=== PATIENT | female | born 1950 | race African-American/Black ===

== ENCOUNTER → 2017-12-08 | Outpatient (CLI) | payer MEDICARE ==
[2017-12-08 07:57] LABS: ABSOLUTE BASOPHILS # (AUTO) 0.1 10^3/uL (0.0-0.2); ABSOLUTE LYMPHOCYTES (AUTO) 2.4 10^3/uL (0.5-4.7); ABSOLUTE MONOCYTES (AUTO) 0.8 10^3/uL (0.1-1.4); ABSOLUTE NEUT (AUTO) 2.8 10^3/uL (1.7-8.2); BASOPHILS % (AUTO) 1.4 % (0-2); EOSINOPHILS % (AUTO) 0.1 % (0-6); HEMATOCRIT 36.5 % (36.0-47.0); HEMOGLOBIN 12.5 g/dL (12.0-15.5); LYMPHOCYTES % (AUTO) 38.8 % (13-45); MEAN CORPUSCULAR HEMOGLOBIN 31.9 pg (27.0-33.4); MEAN CORPUSCULAR HGB CONC 34.1 g/dL (32.0-36.0); MEAN CORPUSCULAR VOLUME 93 fl (80-97); MONOCYTES % (AUTO) 13.5 % (3-13); PLATELET COUNT 205 10^3/uL (150-450); RED BLOOD COUNT 3.91 10^6/uL (3.72-5.28); RED CELL DISTRIBUTION WIDTH 12.7 % (11.5-14.0); SEGMENTED NEUTROPHILS % (AUTO) 46.2 % (42-78); TOTAL CELLS COUNTED % (AUTO) 100 %; WHITE BLOOD COUNT 6.1 10^3/uL (4.0-10.5)
[2017-12-08 08:14] LABS: ALANINE AMINOTRANSFERASE 56 U/L (9-52); ALBUMIN 3.9 g/dL (3.5-5.0); ALKALINE PHOSPHATASE 94 U/L (38-126); ANION GAP 14 (5-19); ASPARTATE AMINO TRANSFERASE 66 U/L (14-36); BILIRUBIN,DIRECT 0.3 mg/dL (0.0-0.4); BILIRUBIN,TOTAL 0.6 mg/dL (0.2-1.3); BLOOD UREA NITROGEN 12 mg/dL (7-20); CALCIUM 9.2 mg/dL (8.4-10.2); CARBON DIOXIDE 26 mmol/L (22-30); CHLORIDE 104 mmol/L (98-107); CHOLESTEROL 158.38 mg/dL (0-200); GLUCOSE 190 mg/dL (75-110); POTASSIUM 3.7 mmol/L (3.6-5.0); SODIUM 143.6 mmol/L (137-145); TOTAL PROTEIN 7.4 g/dL (6.3-8.2); TRIGLYCERIDES 116 mg/dL (<150)
[2017-12-08 08:35] LABS: DIRECT LDL 83 mg/dL (<100)
[2017-12-09 11:39] LABS: CREATININE URINE 182.1 mg/dL (Not Estab.); MICROALBUMIN URINE 10.7 ug/mL (Not Estab.)
== END ==
LOC: LAB 07:11
PROVIDERS: ATTEND Family Medicine
DX: E11.51 Type 2 diabetes mellitus with diabetic peripheral angiopathy without gangrene (principal); Z13.220 Encounter for screening for lipoid disorders
CPT/HCPCS: 36415; 80053; 80061; 82043; 82570; 83036; 85025

== ENCOUNTER → 2018-05-28 | Outpatient (CLI) | payer MEDICARE ==
[2018-05-28 10:44] LABS: ABSOLUTE LYMPHOCYTES (AUTO) 2.2 10^3/uL (0.5-4.7); ABSOLUTE NEUT (AUTO) 3.2 10^3/uL (1.7-8.2); BASOPHILS % (AUTO) 0.6 % (0-2); EOSINOPHILS % (AUTO) 0.1 % (0-6); HEMATOCRIT 37.2 % (36.0-47.0); HEMOGLOBIN 12.7 g/dL (12.0-15.5); LYMPHOCYTES % (AUTO) 34.1 % (13-45); MEAN CORPUSCULAR HEMOGLOBIN 31.8 pg (27.0-33.4); MEAN CORPUSCULAR HGB CONC 34.1 g/dL (32.0-36.0); MEAN CORPUSCULAR VOLUME 93 fl (80-97); MONOCYTES % (AUTO) 14.9 % (3-13); PLATELET COUNT 157 10^3/uL (150-450); RED CELL DISTRIBUTION WIDTH 12.5 % (11.5-14.0); SEGMENTED NEUTROPHILS % (AUTO) 50.3 % (42-78); TOTAL CELLS COUNTED % (AUTO) 100 %; WHITE BLOOD COUNT 6.5 10^3/uL (4.0-10.5)
[2018-05-28 11:01] LABS: ALANINE AMINOTRANSFERASE 86 U/L (9-52); ALBUMIN 4.3 g/dL (3.5-5.0); ALKALINE PHOSPHATASE 104 U/L (38-126); ANION GAP 12 (5-19); ASPARTATE AMINO TRANSFERASE 93 U/L (14-36); BILIRUBIN,DIRECT 0.2 mg/dL (0.0-0.4); BILIRUBIN,TOTAL 0.6 mg/dL (0.2-1.3); BLOOD UREA NITROGEN 14 mg/dL (7-20); CALCIUM 9.6 mg/dL (8.4-10.2); CARBON DIOXIDE 27 mmol/L (22-30); CHLORIDE 99 mmol/L (98-107); CHOLESTEROL 202.49 mg/dL (0-200); GLUCOSE 287 mg/dL (75-110); POTASSIUM 3.9 mmol/L (3.6-5.0); SODIUM 137.6 mmol/L (137-145); TOTAL PROTEIN 7.7 g/dL (6.3-8.2); TRIGLYCERIDES 132 mg/dL (<150)
[2018-05-28 11:12] LABS: DIRECT LDL 113 mg/dL (<100)
[2018-05-30 14:40] LABS: CREATININE URINE 158.8 mg/dL (Not Estab.); MICROALBUMIN URINE 8.1 ug/mL (Not Estab.)
== END ==
LOC: OD 09:04
PROVIDERS: ATTEND Family Medicine
DX: E11.51 Type 2 diabetes mellitus with diabetic peripheral angiopathy without gangrene (principal); Z79.82 Long term (current) use of aspirin
CPT/HCPCS: 36415; 80053; 80061; 82043; 82570; 83036; 85025

== ENCOUNTER 2018-06-24 01:34 | Emergency (ER) | payer MEDICARE ==
[2018-06-24 03:09] VITALS: BP 175/86
== END 2018-06-24 06:36 | disposition left against medical advice (07) ==
LOC: ER 01:34
DX: Z53.21 Procedure and treatment not carried out due to patient leaving prior to being seen by health care provider (principal)

== ENCOUNTER 2018-06-24 10:37 | Emergency (ER) | payer MEDICARE ==
[2018-06-24] MEDS ORDERED: ASPIRIN 81 MG TABLET, CHEWABLE PO ONE (11:05)
--- NOTE | 2018-06-24 11:06 | ER Document Report ---
ED Medical Screen (RME) - General Chief Complaint: Leg Swelling Stated Complaint: LEG SWOLLEN Time Seen by Provider: 06/24/18 11:00 Primary Care Provider: AJ HENSON MD [Primary Care Provider] - Follow up as needed Notes: 68-year old female with a history of diabetes presents emergency department with complaints of right lower extremity pain. Patient came to the emergency department yesterday for similar complaints and left AGAINST MEDICAL ADVICE. EMS brought the patient to the emergency department. Her blood sugar was noted to be 429. Patient states that she is having increased thirst, increased urination, RLE pain, and shortness of breath. Patient denies a history of any lung disease. Denies any fever, chills, chest pain, rhinorrhea, cough. I have greeted and performed a rapid initial assessment of this patient. A comprehensive ED assessment and evaluation of the patient, analysis of test results and completion of the medical decision making process will be conducted by additional ED providers. PHYSICAL EXAMINATION: GENERAL: Well-appearing, well-nourished and in no acute distress. HEAD: Atraumatic, normocephalic. EYES: Pupils equal round extraocular movements intact, conjunctiva are normal. ENT: Nares patent NECK: Normal range of motion LUNGS: No respiratory distress Musculoskeletal: Normal range of motion NEUROLOGICAL: Normal speech. PSYCH: Normal mood, normal affect. SKIN: Warm, Dry, normal turgor, no rashes or lesions noted. TRAVEL OUTSIDE OF THE [place] IN LAST 30 DAYS: No - Related Data Allergies/Adverse Reactions: No Known Allergies Allergy (Verified 06/24/18 10:38) Physical Exam - Vital signs Vitals: Temp Pulse Resp BP Pulse Ox 98.5 F 127 H 16 94/71 L 98 06/24/18 10:45 06/24/18 10:45 06/24/18 10:45 06/24/18 10:45 06/24/18 10:45 Course - Vital Signs Vital signs: Temp Pulse Resp BP Pulse Ox 98.5 F 127 H 16 94/71 L 98 06/24/18 10:45 06/24/18 10:45 06/24/18 10:45 06/24/18 10:45 06/24/18 10:45 Doctor's Discharge - Discharge Referrals: AJ HENSON MD [Primary Care Provider] - Follow up as needed
[2018-06-24] MEDS ORDERED: NORMAL SALINE 1000 ML 1,000 ML IV ONE ×2 (11:10→14:00)
[2018-06-24 12:04] LABS: HEMATOCRIT 42.8 % (36.0-47.0); HEMOGLOBIN 13.5 g/dL (12.0-15.5); MEAN CORPUSCULAR HEMOGLOBIN 31.8 pg (27.0-33.4); MEAN CORPUSCULAR HGB CONC 31.6 g/dL (32.0-36.0); PLATELET COUNT 153 10^3/uL (150-450); RED BLOOD COUNT 4.25 10^6/uL (3.72-5.28); RED CELL DISTRIBUTION WIDTH 13.7 % (11.5-14.0); WHITE BLOOD COUNT 25.9 10^3/uL (4.0-10.5)
[2018-06-24] MEDS ORDERED: ETOMIDATE INJ/PF 20 MG/10 ML SDV IV ONE (12:17)
[2018-06-24] MEDS ORDERED: NOREPINEPHRINE BITARTRATE INJ/PF 4 MG/4 ML SDV IV ONE ×2 (12:18→16:29)
[2018-06-24 12:21] LABS: ALANINE AMINOTRANSFERASE 59 U/L (9-52); ALBUMIN 4.6 g/dL (3.5-5.0); ALKALINE PHOSPHATASE 148 U/L (38-126); BILIRUBIN,DIRECT 0.9 mg/dL (0.0-0.4); BILIRUBIN,TOTAL 1.3 mg/dL (0.2-1.3); BLOOD UREA NITROGEN 16 mg/dL (7-20); CALCIUM 8.7 mg/dL (8.4-10.2); POTASSIUM 4.1 mmol/L (3.6-5.0)
[2018-06-24 12:26] LABS: CARBON DIOXIDE 12 mmol/L (22-30); CHLORIDE 102 mmol/L (98-107); SODIUM 142.6 mmol/L (137-145)
[2018-06-24 12:28] LABS: ASPARTATE AMINO TRANSFERASE 336 U/L (14-36)
[2018-06-24 12:32] LABS: ANION GAP 29 (5-19)
[2018-06-24 12:35] LABS: GLUCOSE 590 mg/dL (75-110)
[2018-06-24 12:43] LABS: MEAN CORPUSCULAR VOLUME 101 fl (80-97)
[2018-06-24 12:47] LABS: ABSOLUTE LYMPHOCYTES# (MANUAL) 1.6 10^3/uL (0.5-4.7); ABSOLUTE MONOCYTES # (MANUAL) 0.8 10^3/uL (0.1-1.4); ABSOLUTE NEUTROPHILS# (MANUAL) 23.6 10^3/uL (1.7-8.2); BAND NEUTROPHILS % (MANUAL) 27 % (3-5); BASOPHILS % (MANUAL) 0 % (0-2); BURR CELLS SLIGHT; EOSINOPHILS % (MANUAL) 0 % (0-6); LYMPHOCYTES % (MANUAL) 6 % (13-45); METAMYELOCYTES % (MANUAL) 7 % (0); MONOCYTES % (MANUAL) 3 % (3-13); OVALOCYTES SLIGHT; PLATELET COMMENT ADEQUATE; POIKILOCYTOSIS SLIGHT; SEGMENTED NEUTROPHILS % (MAN) 57 % (42-78); TOTAL CELLS COUNTED 100
[2018-06-24] MEDS ORDERED: PROPOFOL 0 MG/0 ML INFUS..BTL IV ONE (12:59)
[2018-06-24] MEDS ORDERED: CEFTRIAXONE 2 GM/D5W RTU 2 GM/50 ML RTUPB IV ONE (13:07)
[2018-06-24] MEDS ORDERED: MIDAZOLAM 2 MG/2 ML INJ ONE (13:09)
--- NOTE | 2018-06-24 13:17 | RADIOLOGY REPORT (SQ) ---
EXAM DESCRIPTION: CHEST SINGLE VIEW COMPLETED DATE/TIME: 06/24/2018 1:01 pm REASON FOR STUDY: shortness of breath COMPARISON: None. EXAM PARAMETERS: NUMBER OF VIEWS: One view. TECHNIQUE: Single frontal radiographic view of the chest acquired. RADIATION DOSE: NA LIMITATIONS: None. FINDINGS: LUNGS AND PLEURA: There is possible left perihilar and retrocardiac heterogeneous pulmonar y opacity. Lung ayala are generally poorly evaluated on this low volume examination with overlying support apparatus. MEDIASTINUM AND HILAR STRUCTURES: No masses. Contour normal. HEART AND VASCULAR STRUCTURES: Heart normal in size. Normal vasculature. BONES: No acute findings. HARDWARE: None in the chest. OTHER: Endotracheal tube positioned below the thoracic inlet. Esophagogastric tube with tip and side -port below the diaphragm. IMPRESSION: 1. Endotracheal tube positioned below the thoracic inlet. Esophagogastric tube with tip and side-port below the diaphragm. 2. There is possible left perihilar and retrocardiac heterogeneous pulmonary opacity. Lung ayala ar e generally poorly evaluated on this low volume examination with overlying support apparatus. TECHNICAL DOCUMENTATION: JOB ID: [id number] [employer]- All Rights Reserved Reading location - IP/workstation name: [email or web address]
--- NOTE | 2018-06-24 14:03 | EKG REPORT ---
SEVERITY:- OTHERWISE NORMAL ECG - SINUS TACHYCARDIA BORDERLINE LEFT AXIS DEVIATION : Confirmed by: Geo Holloway 24-Jun-2018 14:02:15
[2018-06-24] MEDS ORDERED: DOPAMINE HCL/DEXTROSE 5%-WATER 800 MG/250 ML RTUINJ IV ONE (14:04)
--- NOTE | 2018-06-24 15:10 | ER Document Report ---
ED General - General Chief Complaint: Leg Swelling Stated Complaint: LEG SWOLLEN Time Seen by Provider: 06/24/18 11:00 Primary Care Provider: AJ HENSON MD [Primary Care Provider] - Follow up as needed Notes: Patient brought in by EMS for right leg pain. Reviewing patient's history with nursing staff, patient was reportedly here and left without being seen this morning. Reviewing her chart from earlier shows that she came in about 1:30 AM with right leg pain. Said she had been walking a lot the day before but no other unusual activity. Also complained of nausea and vomiting. She was not seen because the emergency department was so busy. She left without being seen at approximately 6:30 AM this morning. Family relates that the patient has developed swelling of the right leg that was not present last night when the leg pain started. The patient returns with complaint of continued right leg pain and now swelling of that leg. She went through triage and she had a pulse of 127 and a blood pressure of 94/71. Respirations were 16 and O2 sat 98%. Afebrile. Just as the patient was being helped to her stretcher in the examining room, she suddenly became unresponsive. I was called to the bedside. Patient was laying on the stretcher and unresponsive to any vocal or tactile stimulation. She had very weak radial pulses in her wrists bilaterally. CPR was initiated. At one time, patient appeared to be in asystole and I almost ceased any further resuscitation, but patient was noted to return to a wide complex heart rate around 100 and developed a pulse so CPR was continued. Patient was intubated. Blood pressure was very low and patient was started on Levophed and titrated up in dose of 20 mcg/min. When the blood pressure did not seem to respond well, a second pressor medication, dopamine, was started. Patient also received 2 L of saline. Patient's only blood thinner is aspirin daily. TRAVEL OUTSIDE OF THE [place] IN LAST 30 DAYS: No - Related Data Allergies/Adverse Reactions: No Known Allergies Allergy (Verified 06/24/18 10:38) Past Medical History - Social History Smoking Status: Former Smoker Chew tobacco use (# tins/day): No Frequency of alcohol use: None Drug Abuse: None Family History: Reviewed & Not Pertinent Patient has suicidal ideation: No Patient has homicidal ideation: No - Past Medical History Cardiac Medical History: Reports: Hx Hypercholesterolemia, Hx Hypertension Endocrine Medical History: Reports: Hx Diabetes Mellitus Type 2 Past Surgical History: Reports: Hx Genitourinary Surgery, Hx Hysterectomy Review of Systems - Review of Systems Notes: Unresponsive. -: Yes ROS unobtainable due to patient's medical condition Physical Exam - Vital signs Vitals: Temp Pulse Resp BP Pulse Ox 98.5 F 127 H 16 94/71 L 98 06/24/18 10:45 06/24/18 10:45 06/24/18 10:45 06/24/18 10:45 06/24/18 10:45 Interpretation: Hypotensive Notes: PHYSICAL EXAMINATION: GENERAL: Unresponsive.. HEAD: Atraumatic, normocephalic. EYES: Unable to examine NECK: Normal range of motion, supple. LUNGS: Breath sounds clear and equal bilaterally. HEART: Regular rate and rhythm without murmurs. Very faint heart sounds, likely due to the low blood pressure ABDOMEN: Soft, nontender. No guarding or rebound. No masses. BACK: No tenderness throughout entire back. EXTREMITIES: Right upper leg massively swollen and somewhat tight to the touch. Has the feel of gas, sounds like gas when percussed, even note some slight feeling of subcutaneous air crinkling. Some dark discoloration on the medial aspect of the right knee and distal thigh. Initially, I could easily palpate pulses in the left, normal lower extremity at the dorsalis pedis, and I thought I could feel a very faint pulse of the dorsal right foot NEUROLOGICAL: Unresponsive PSYCH: SKIN: Warm, dry, see above description of extremities s. Course - Re-evaluation Re-evalutation: 06/24/18 16:04 Patient continued to have difficulty maintaining an acceptable blood pressure blood pressure would drop down into the 60s or 70s systolic, even on the Levophed drip at 20 mics per hour. We added dopamine drip. Patient's CBC showed a white count of about 25,000 with 25 bands. I ordered 2 g of Rocephin IV. I reexamined patient and found that her right leg felt cooler now than the left and I definitely cannot feel pulses in the left foot. There is an extreme amount of swelling of that right thigh, tense to the touch, and now, the patient is starting to develop dark fluid-filled blisters of the right thigh they are apparently enlarging, as well. We are set up to do a CTA of the chest to rule out PE. We are going to do run off of the contrast and try to get CT of the blood vessels of the proximal right lower extremity. I have held up on giving anticoagulants because of this patient's swelling of the right leg and my juve rns that she might have a bleeding problem that is compromising the blood flow into the right lower extremity. Central line has been placed by Dr. Jj, surgeon crutching contractor. Patient's pH has come back in the 6.6 area. She is been given a couple of amps of bicarb. 06/24/18 18:[address] scan shows extensive subcutaneous air/gas throughout most of the right leg and up into the buttock and lower abdominal bilaterally, though more on the right than on the left. Radiologist said that the gas is actually seen to be within the arteries in the right groin and thigh. Over time, patient's right leg had become cold and no pulses could be palpated in the foot. I suspect that the compression of gas in the patient's right thigh was preventing blood supply to the arteries into the foot. I did examine the soles of both of the patient's feet and did not find any evidence of a cut or sore or any infection. Patient's blood pressure continued to drop, down to systolic of 70 in spite of being on both Levophed and dopamine drips. Also, patient began to drop her oxygen saturation to about 80%. Tube placement was rechecked. CO2 detector checked and tube is in proper location. As patient's blood pressure dropped to 58 systolic, I spoke with the family explaining everything were finding on the patient's CT scan. Asked them to consider making the patient a DNR. Had a lengthy conversation with 1 of patient's sisters, even showing her the CT scan results. We went back into the patient's room and while standing there awaiting the Doppler tech to finish the venous Doppler of this patient's leg, I noted that the monitor went to 0 heart rate. We checked the wiring and attachments had everything is intact but the patient's heart had stopped. I told the patient sister that I did not feel we should do anything else because there was nothing else that was going to make a difference in this patient's outcome. Patient showed no more cardiac activity and the respirator was removed. Drips were stopped. I went to the family room and told the in the room many members of the family about the patient's passing. Patient was pronounced at 18:13. - Vital Signs Vital signs: Temp Pulse Resp BP Pulse Ox 97.4 F 127 H 20 39/23 L 91 L 06/24/18 13:17 06/24/18 10:45 06/24/18 18:04 06/24/18 18:04 06/24/18 17:56 - Laboratory Result Diagrams: 06/24/18 11:40 06/24/18 11:40 Laboratory results interpreted by me: 06/24/18 06/24/18 06/24/18 11:40 11:40 11:40 WBC 25.9 H MCV 101 H D MCHC 31.6 L Band Neutrophils % 27 H Lymphocytes % (Manual) 6 L Metamyelocytes % 7 H Abs Neuts (Manual) 23.6 H Carbonic Acid ABG pH ABG pCO2 ABG pO2 ABG HCO3 ABG Total CO2 Carbon Dioxide 12 L Anion Gap 29 H Creatinine 1.61 H Est GFR ( Amer) 39 L Est GFR (Non-Af Amer) 32 L Glucose 590 H* Lactic Acid 17.3 H Direct Bilirubin 0.9 H AST 336 H ALT 59 H Alkaline Phosphatase 148 H Urine Glucose (UA) Urine Ketones Urine Blood 06/24/18 06/24/18 13:51 13:51 WBC MCV MCHC Band Neutrophils % Lymphocytes % (Manual) Metamyelocytes % Abs Neuts (Manual) Carbonic Acid 1.66 H ABG pH 6.62 L* ABG pCO2 55.2 H ABG pO2 209.6 H ABG HCO3 5.6 L ABG Total CO2 7.3 L Carbon Dioxide Anion Gap Creatinine Est GFR ( Amer) Est GFR (Non-Af Amer) Glucose Lactic Acid Direct Bilirubin AST ALT Alkaline Phosphatase Urine Glucose (UA) >=500 H Urine Ketones 20 H Urine Blood LARGE H Procedures - Intubation Orotracheal Airway evaluation: Large tongue, Obese Medications: Etomidate, Other - Rocuronium Intubation method: Orotracheal Blade type: Other Equipment used: Glidescope ETT size: 7.0 Breath Sounds after Intubation: Equal End tidal CO2 confirmed: Yes Critical Care Note - Critical Care Note Total time excluding time spent on procedures (mins): 100 Discharge - Discharge Clinical Impression: Gas producing infection, Sepsis Disposition: Referrals: AJ HENSON MD [Primary Care Provider] - Follow up as needed
[2018-06-24 15:12] LABS: ARTERIAL BLOOD BASE EXCESS -31.9 mmol/L; ARTERIAL BLOOD H2CO3 1.66 mmol/L (1.05-1.35); ARTERIAL BLOOD HCO3 5.6 mmol/L (20-24); ARTERIAL BLOOD O2 SATURATION 97.4 % (94-98); ARTERIAL BLOOD PCO2 55.2 mmHg (35-45); ARTERIAL BLOOD PO2 209.6 mmHg (80-100); ARTERIAL BLOOD TOTAL CO2 7.3 mmol/L (21-25)
[2018-06-24 15:13] LABS: ARTERIAL BLOOD FIO2 100%
[2018-06-24 15:15] LABS: ARTERIAL BLOOD PH 6.62 (7.35-7.45)
[2018-06-24] MEDS ORDERED: SODIUM BICARBONATE 8.4% INJ 50 MEQ/50 ML DISP.SYRIN IV ONE ×2 (15:20)
[2018-06-24 15:23] LABS: APPEARANCE,URINE SLIGHTLY-CLOUDY; BILIRUBIN,URINE NEGATIVE (NEGATIVE); COLOR,URINE YELLOW; GLUCOSE, URINE >=500 mg/dL (NEGATIVE); KETONES,URINE 20 mg/dL (NEGATIVE); LEUKOCYTE ESTERASE,URINE NEGATIVE (NEGATIVE); NITRITE,URINE NEGATIVE (NEGATIVE); PROTEIN,URINE NEGATIVE (NEGATIVE); URINE SPECIFIC GRAVITY 1.022; UROBILINOGEN,URINE NEGATIVE mg/dL (<2.0)
[2018-06-24] MEDS ORDERED: ROCURONIUM BROMIDE INJ 50 MG/5 ML VIAL IV ONE (16:08)
--- NOTE | 2018-06-24 16:16 | RADIOLOGY REPORT (SQ) ---
EXAM DESCRIPTION: CHEST SINGLE VIEW COMPLETED DATE/TIME: 06/24/2018 4:02 pm REASON FOR STUDY: RT CL COMPARISON: Earlier the same day. NUMBER OF VIEWS: One view. TECHNIQUE: Single frontal radiographic image of the chest acquired. LIMITATIONS: None. FINDINGS: LUNGS AND PLEURA: Increasing airspace disease right lung and left base. No pneumothorax. MEDIASTINUM AND HEART: Stable heart size and mediastinal structures. SUPPORT DEVICES: Interval placement of right central line tip overlying SVC. Nasogastric and endotra cheal tubes position not significantly changed. BONY STRUCTURES: No acute findings. HARDWARE: None. OTHER: No other significant finding. IMPRESSION: Good position of right IJ central line. No pneumothorax. Reading location - IP/workstation name: [email or web address]
[2018-06-24] MEDS ORDERED: INSULIN REG, HUMAN 100 UNIT/ML 3 ML VIAL (PYX) IV ONE (16:36)
[2018-06-24] MEDS ORDERED: EPINEPHRINE INJ 1 MG/10 ML DISP.SYRIN ONE (16:47)
--- NOTE | 2018-06-24 17:53 | RADIOLOGY REPORT (SQ) ---
EXAM DESCRIPTION: CTA CHEST COMPLETED DATE/TIME: 06/24/2018 5:18 pm REASON FOR STUDY: Cardiopulmonary arrest, swollen right leg COMPARISON: None. TECHNIQUE: CT scan of the chest performed using helical scanning technique with dynamic intravenous contrast injection. Images reviewed with lung, soft tissue and bone windows. Reconstructed coronal and sagittal MPR images reviewed. Additional 3 dimensional post-processing performed to develop Maximal Intensity Projection images (NV P). All images stored on PACS. All CT scanners at this facility use dose modulation, iterative reconstruction, and/or weight based d osing when appropriate to reduce radiation dose to as low as reasonably achievable (ALARA). [facility]: Dose Right [facility]: CareDose [facility]: Dose Right [facility]: Teradose 4D [facility]: Smart [employer] CONTRAST TYPE AND DOSE: Contrast bolus adequate for pulmonary arteries and aorta. RENAL FUNCTION: BUN 16; creatinine 1.61 RADIATION DOSE: CT Rad equipment meets quality standard of care and radiation dose reduction techniq ues were employed. CTDIvol: 16.2 - 34.0 mGy. DLP: 1933 mGy-cm. . LIMITATIONS: None. FINDINGS: LUNGS AND PLEURA: Bibasilar dependent atelectasis versus consolidation. A tiny amount of extrapleural air is seen on the left. No pleural effusion. AORTA AND GREAT VESSELS: No aneurysm. No dissection. HEART: Gas is seen within the right ventricle. The heart is enlarged. Moderate pericardial fluid i s present. PULMONARY ARTERIES: No emboli visualized in the main pulmonary arteries or the segmental branches. HILAR AND MEDIASTINAL STRUCTURES: Pneumomediastinum. No identified masses or abnormal nodes. HARDWARE: Endotracheal tube demonstrates appropriate positioning. An enteric tube terminates within the stomach. UPPER ABDOMEN: See separate report of the CT of the abdomen. THYROID AND OTHER SOFT TISSUES: No masses. No adenopathy. BONES: Nondisplaced fractures of the left 6th and 7th ribs anteriorly. 3D MIPS: Confirm above findings. OTHER: No other significant finding. IMPRESSION: No pulmonary emboli or aortic dissection. Pneumomediastinum and gas seen within the rig ht ventricle in this patient with reported resuscitative efforts. Nondisplaced rib fractures on the left. Appropriate positioning of an enteric and endotracheal tube. COMMENT: Quality ID # 436: Final reports with documentation of one or more dose reduction techniques (e.g., Automated exposure control, adjustment of the mA and/or kV according to patient size, use of iterative reconstruction technique) TECHNICAL DOCUMENTATION: JOB ID: [id number] [employer]- All Rights Reserved Reading location - IP/workstation name: [email or web address]
--- NOTE | 2018-06-24 18:18 | RADIOLOGY REPORT (SQ) ---
EXAM DESCRIPTION: CTA ABD AORTA AND EXTREMITY COMPLETED DATE/TIME: 06/24/2018 5:18 pm REASON FOR STUDY: Swollen, cool right leg COMPARISON: None. TECHNIQUE: CT scan of the body and lower extremities performed with intravenous contrast using helic al scanning technique with dynamic intravenous contrast injection. Images reviewed with lung, soft ti ssue, and bone windows. Reconstructed coronal and sagittal MPR images reviewed. All images stored on PACS. Advanced 3D imaging as volume-rendering, MIPs, SSD performed? yes All CT scanners at this facility use dose modulation, iterative reconstruction, and/or weight based d osing when appropriate to reduce radiation dose to as low as reasonably achievable (ALARA). [facility]: Dose Right [facility]: CareDose [facility]: Dose Right [facility]: Teradose 4D [facility]: [employer] CONTRAST TYPE AND DOSE: contrast/concentration: Isovue 300.00 mg/ml; Total Contrast Delivered: 100.0 ml; Total Saline Delivered: 75.0 ml RENAL FUNCTION: BUN 16; creatinine 1.61 LIMITATIONS: None. FINDINGS: NON-CONTRASTED IMAGING: Post contrast images only. POST-CONTRAST IMAGING: AORTA AND VESSELS: No aneurysm. No dissection. Renal arteries, SMA, celiac without stenosis. The rig ht iliac artery, to include the internal and external branches, is poorly opacified. LUNG BASES: Please refer to report for CTA of the chest performed concomitantly. LIVER: Normal size. No masses or dilated ducts. SPLEEN: Normal size. No focal masses are visualized. Pneumobilia is seen within the left hepatic lo be. PANCREAS: No masses. No significant calcifications. No adjacent inflammation or peripancreatic fluid collections. Pancreatic duct not dilated. GALLBLADDER: Surgically absent. ADRENAL GLANDS: No significant masses or asymmetry. RIGHT KIDNEY AND URETER: No mass, calculi or urinary tract obstruction. LEFT KIDNEY AND URETER: No mass, calculi or urinary tract obstruction. RETROPERITONEUM: Diffuse retroperitoneal gas is seen predominantly on the right. No retroperitoneal hemorrhage. BOWEL AND PERITONEAL CAVITY: Moderate pneumoperitoneum as well as gas dissecting between the abdomina l wall musculature, predominantly on the right. No discrete pneumatosis intestinalis. APPENDIX: Not visualized. ABDOMINAL WALL: Diffuse intramuscular and subcutaneous emphysema which includes the abdominal wall, r ight groin and perineum, and right lower extremity. BONY STRUCTURES: A small amount of epidural gas is seen to the right within the sacrum. No osseous i njury or suspicious lytic/blastic osseous lesion. 3-D IMAGING: Confirms the above findings. OTHER: A Helton bladder catheter demonstrates appropriate positioning. LOWER EXTREMITIES: RIGHT LEG: FEMORAL ARTERIES: The femoral artery appears to be gas filled. POPLITEAL ARTERY: Gas-filled. TIBIOPERONEAL TRUNK AND RUNOFF VESSELS: Gas-filled. OTHER: Severe subcutaneous and intramuscular emphysema with the appearance of prominent fluid-filled cutaneous bullae. LEFT LEG: FEMORAL ARTERIES: No occlusions or significant stenoses. POPLITEAL ARTERY: No aneurysm. No occlusions or significant stenoses. TIBIOPERONEAL TRUNK AND RUNOFF VESSELS: No occlusions or significant stenoses. OTHER: In intraosseous needle is seen within the left tibia. IMPRESSION: No evidence of aortic dissection. Poorly opacified right iliac artery becomes air-fille d as it enters the inguinal canal and remains as such throughout the branches of the visualized runof f. Marked right lower extremity and abdominal subcutaneous and intramuscular gas as well as pneumope ritoneum, pneumoretroperitoneum, and pneumobilia. Additional findings to include intracardiac gas (r ight ventricle) as detailed on chest CTA performed concomitantly. COMMENT: Pertinent findings on the imaging study reported as a CRITICAL RESULT to ROS RODRIGUEZ MD at17:50 on 06/24/2018. Category of Critical Result: Arterial vascular compromise and diffuse subcutaneous, intramuscular, an d intra-abdominal gas. TECHNICAL DOCUMENTATION: JOB ID: [id number] Quality ID # [id number]: Final reports with documentation of one or more dose reduction techniques (e.g., Au tomated exposure control, adjustment of the mA and/or kV according to patient size, use of iterative reconstruction technique) 2010 [employer]- All Rights Reserved Reading location - IP/workstation name: [email or web address]
[2018-06-24 18:21] VITALS: BP 39/23
--- NOTE | 2018-06-24 20:33 | OPERATIVE REPORT E ---
Operative Report NAME: EDER ROBLEDO : 1950 AGE: 68Y DATE OF SURGERY: 06/24/2018 ROOM: PREOPERATIVE DIAGNOSIS: THE PATIENT CODED AND NEEDED INTRAVENOUS ACCESS. SHE HAS POOR PERIPHERAL VEINS. POSTOPERATIVE DIAGNOSIS: THE PATIENT CODED AND NEEDED INTRAVENOUS ACCESS. SHE HAS POOR PERIPHERAL VEINS OPERATION: ATTEMPTED PLACEMENT OF LEFT INTERNAL JUGULAR VEIN CATHETER; PLACEMENT OF RIGHT INTERNAL JUGULAR VEIN TRIPLE LUMEN CATHETER WITH ULTRASOUND GUIDANCE. SURGEON: MYCHAL KIDD M.D. INDICATION: This is a 68-year-old female who just coded, and now intubated. She needed IV access for medications. She has poor veins for IV access and has an intraosseous catheter for fluids. PROCEDURE: The patient was placed in Trendelenburg position and the left neck prepped and draped in the usual sterile fashion. With the use of the ultrasound, the left internal jugular vein appears to be quite small. It was then punctured, and unfortunately I was unable to thread a guidewire through the vein despite aspirating dark blood easily. This was done a few more times, and finally this was abandoned, and this time the right neck was then prepped and draped in usual sterile fashion. With the use of the ultrasound, the right internal jugular vein was noted to be bigger. It was then punctured and aspirated dark blood, nonpulsatile. Guidewire passed through the needle, and needle removed, and the insertion site dilated. Next, a triple lumen catheter was inserted through the guidewire to a distance of about 17 cm. Guidewire removed, and all three ports aspirated blood easily and instilled saline easily. The catheter was then anchored to the skin with 3-0 silk, and Biopatch placed at the insertion site and transparent dressing placed over the Biopatch and catheter. Chest x-ray will be obtained for placement. DICTATING PHYSICIAN: MYCHAL KIDD M.D. [id number] PHY#: [id number] ID: [id number] JOB#: [id number] ACCT: [id number] cc:MYCHAL KIDD M.D. >
--- NOTE | 2018-06-25 09:43 | RADIOLOGY REPORT (SQ) ---
EXAM DESCRIPTION: VENOUS UNILATERAL LOWER COMPLETED DATE/TIME: 06/24/2018 8:07 pm REASON FOR STUDY: right leg COMPARISON: None. FINDINGS: Attempted right lower extremity venous Doppler interrogation was unsuccessful due to patie nt body habitus and edema. TECHNICAL DOCUMENTATION: JOB ID: [id number] Reading location - IP/workstation name: [email or web address]
[2018-06-27 13:49] LABS: PATH REVIEW PATHOLOGIST REVIEWED
== END 2018-06-24 20:34 | disposition expired ==
LOC: ER 10:37
DX: A41.9 Sepsis, unspecified organism (principal); M79.604 Pain in right leg; R11.2 Nausea with vomiting, unspecified; I10 Essential (primary) hypertension; E11.9 Type 2 diabetes mellitus without complications; Z87.891 Personal history of nicotine dependence
CPT/HCPCS: 36556; 31500; 93005; 99291; 99292; 92950; 96361; 96365; 96366; 96368; 36415; 87040; 87086; 82962; 82803; 85025; 87077; 80053; 81001; 84484; 83605; 93971; 71045; 71275; 75635; 94660; 93010; C1751; A9270 ×2; J3490 ×4; J0171; J7030; J0696; J1815